=== PATIENT | female | born 1980 ===

== ENCOUNTER 2018-12-20 17:40 | Emergency (ER) | payer MEDICARE, MEDICAID ==
[2018-12-20 17:57] VITALS: BMI 30.4
[2018-12-20 17:59] VITALS: TEMP 98.8
[2018-12-20] MEDS ORDERED: Sodium Chloride 0.9% 1,000 ML IV STA (18:20)
[2018-12-20] MEDS ORDERED: DiphenhydrAMINE 50 mg/ml Inj IVP STA (18:20)
--- NOTE | 2018-12-20 18:41 | ED PDOC ---
Arrival/HPI - General Chief Complaint: Headache Time Seen by Provider: 12/20/18 17:40 Historian: Patient - History of Present Illness Narrative History of Present Illness (Text): 12/20/18 18:21 38 y/o female with PMH of migraines presents to the ED c/o headache x 2 weeks that worsened over the last 2 days. Headache is gradual in onset, throbbing, located to right jain and forehead, and radiates to right ear and down right side of face. Seen in [facility] ED yesterday and diagnosed with right otitis media, prescribed Augmentin, of which she has taken 2 tablets. Has tried alieve, ibuprofen, and tylenol with codeine for headache without relief. States the pain is unbearable, which prompted visit to ED. States that this does not feel like her previous headaches. Denies numbness, weakness, paresthesias, vision changes, dizziness, fevers, chills, nausea, vomiting, abdominal pain, sore throat, sinus congestion, eye pain, jaw claudication, or any other associated symptoms. Past Medical History - Infectious Disease Hx of Infectious Diseases: None - Cardiac Hx Cardiac Disorders: No - Pulmonary Hx Respiratory Disorders: No - Neurological Hx Neurological Disorder: No - HEENT Hx HEENT Disorder: No - Renal Hx Renal Disorder: No - Endocrine/Metabolic Hx Endocrine Disorders: No - Hematological/Oncological Hx Blood Disorders: No - Integumentary Hx Dermatological Disorder: No - Musculoskeletal/Rheumatological Hx Musculoskeletal Disorders: No - Gastrointestinal Hx Gastrointestinal Disorders: Yes Hx Gastritis: Yes - Genitourinary/Gynecological Hx Genitourinary Disorders: No - Psychiatric Hx Psychophysiologic Disorder: Yes Hx Depression: Yes Hx Substance Use: No Family/Social History Smoking Status: Never Smoked Hx Alcohol Use: No Hx Substance Use: No Allergies/Home Meds Allergies/Adverse Reactions: Allergies Sulfa (Sulfonamide Antibiotics) Allergy (Verified 12/20/18 17:57) RASH Home Medications: Home Meds Medication Instructions Recorded Confirmed Esomeprazole Magnesium [Nexium] 40 mg PO DAILY 12/20/18 12/20/18 Paroxetine HCl [Paxil] 40 mg PO DAILY 12/20/18 12/20/18 Review of Systems - Review of Systems Constitutional: Normal. absent: Fatigue, Fevers Eyes: Normal. absent: Vision Changes, Photophobia, Eye Pain ENT: Other (ear pain). absent: Hearing Changes, Sore Throat, Sinus Congestion Respiratory: Normal. absent: SOB, Cough Cardiovascular: Normal. absent: Chest Pain, Palpitations Gastrointestinal: Normal. absent: Abdominal Pain, Nausea, Vomiting Genitourinary Female: Normal. absent: Dysuria, Frequency, Vaginal Bleeding, Vaginal Discharge Musculoskeletal: Normal. absent: Back Pain, Neck Pain Skin: Normal. absent: Rash Neurological: Headache. absent: Dizziness Endocrine: Normal Hemo/Lymphatic: Normal Psychiatric: Normal Physical Exam Vital Signs Reviewed: Yes Vital Signs Temp Pulse Resp BP Pulse Ox 12/20/18 17:58 98.8 F 87 18 122/77 98 Temperature: Afebrile Blood Pressure: Normal Pulse: Regular Respiratory Rate: Normal Appearance: Positive for: Well-Appearing, Non-Toxic, Comfortable Pain Distress: None Mental Status: Positive for: Alert and Oriented X 3 - Systems Exam Head: Present: Atraumatic, Normocephalic Pupils: Present: PERRL Extroacular Muscles: Present: EOMI Conjunctiva: Present: Normal Ears: Present: Other (LEFT: Normal TM, Normal Canal RIGHT: Erythema and dullness to TM. No mastoid tenderness or bogginess bilaterally) Mouth: Present: Moist Mucous Membranes. No: Normal Teeth (poor dentition to teeth of mandible and maxilla on right side; no abscess or swelling; no tenderness ) Pharnyx: Present: Normal. No: ERYTHEMA, EXUDATE, TONSILS ENLARGED Nose (External): Present: Atraumatic Nose (Internal): Present: Normal Inspection Neck: Present: Normal Range of Motion. No: Meningeal Signs, Lymphadenopathy Respiratory/Chest: Present: Clear to Auscultation, Good Air Exchange. No: Respiratory Distress, Accessory Muscle Use Cardiovascular: Present: Regular Rate and Rhythm, Normal S1, S2, Peripheal Pulses Present Abdomen: Present: Normal Bowel Sounds. No: Tenderness, Distention, Peritoneal Signs, Rebound, Guarding Upper Extremity: Present: Normal Inspection, Normal ROM, NORMAL PULSES, Neurovascularly Intact, Capillary Refill < 2s. No: Cyanosis, Edema, Temperature Abnormalties Lower Extremity: Present: Normal ROM, Neurovascularly Intact Neurological: Present: GCS=15, CN II-XII Intact, Speech Normal, Motor Func Grossly Intact, Normal Sensory Function, Gait Normal Skin: Present: Warm, Dry, Normal Color. No: Rashes Psychiatric: Present: Alert, Oriented x 3, Normal Insight, Normal Concentration, Normal Affect, Normal Mood Medical Decision Making ED Course and Treatment: 12/20/18 19:33 Initial Plan: * CBC, CMP * Coags * Rapid Strep * Rapid Flu * CT Head * IVF * Benadryl * Tylenol 1999 Patient care endorsed to pending lab and imaging results, reassessment, and disposition. Pt made aware of change in care. Resting in stretcher with stable vital signs. Uncomfortable secondary to headache. - Lab Interpretations Lab Results: 12/20/18 19:33 Lab Results 12/20/18 19:33: PT 11.7, INR 1.05, APTT 33.5 12/20/18 19:33: WBC 5.8, RBC 4.08, Hgb 11.8 L, Hct 36.1, MCV 88.5, MCH 28.9, M CHC 32.7, RDW 14.4, Plt Count 272, MPV 11.1 H, Neut % (Auto) 60.1, Lymph % (Auto) 31.1, [place] % (Auto) 6.2 H, Eos % (Auto) 1.7, Baso % (Auto) 0.9, Lymph # (Auto) 1.8, [place] # (Auto) 0.4, Eos # (Auto) 0.1, Baso # (Auto) 0.05, Absolute Neuts (auto) 3.47 I have reviewed the lab results: Yes - RAD Interpretation Radiology Orders: 12/20/18 18:19 HEAD W/O CONTRAST [CT] Stat - Medication Orders Current Medication Orders: Diphenhydramine HCl (Benadryl) 25 mg IVP STAT STA Stop: 12/20/18 18:21 Sodium Chloride (Sodium Chloride 0.9%) 1,000 mls @ 999 mls/hr IV .Q1H1M STA Stop: 12/20/18 19:20 - Transfer of Care Patient signed out to Dr:: Jonathon Pending Labs:: CMP, Rapid Strep, Rapid Flu Pending Radiology Studies:: CT Head Other: Reassessment and Disposition Disposition/Present on Arrival - Present on Arrival History of DVT/PE: No History of Uncontrolled Diabetes: No Urinary Catheter: No History of Decub. Ulcer: No History Surgical Site Infection Following: None - Disposition Forms: [employer] (Spanish)
[2018-12-20 19:48] LABS: BASO # 0.05 K/mm3 (0.0-2.0); BASO % 0.9 % (0.0-3.0); EOS # 0.1 (0.0-0.7); EOS % 1.7 % (1.5-5.0); HEMOGLOBIN 11.8 g/dL (12.0-16.0); LYMPH # 1.8 (1.2-3.4); LYMPH % 31.1 % (22.0-35.0); MEAN CELL VOLUME 88.5 fl (80.0-105.0); MEAN CORPUSCULAR HEMOGLOBIN 28.9 pg (25.0-35.0); MEAN CORPUSCULAR HGB CONC 32.7 g/dl (31.0-37.0); MEAN PLATELET VOLUME 11.1 fl (7.0-11.0); MONO # 0.4 (0.1-0.6); MONO % 6.2 % (1.0-6.0); RBC 4.08 10^6/uL (3.5-6.1); RED CELL DISTRIBUTION WIDTH 14.4 % (11.5-14.5); WHITE BLOOD COUNT 5.8 10^3/uL (4.5-11.0)
[2018-12-20 19:53] LABS: INR 1.05; PARTIAL THROMBOPLASTIN TIME 33.5 Seconds (26.9-38.3); PROTHROMBIN TIME 11.7 SECONDS (9.4-12.5)
[2018-12-20 20:10] LABS: ALBUMIN 3.8 g/dL (3.0-4.8); ALT/SGPT 38 U/L (7-56); AST/SGOT 34 U/L (14-36); BLOOD UREA NITROGEN 11 mg/dL (7-21); CALCIUM 9.4 mg/dL (8.4-10.5); GFR NON-AFRICAN AMERICAN > 60
[2018-12-20 20:27] LABS: BARBITURATES, UR NEGATIVE (NEGATIVE); BENZODIAZEPINES, UR NEGATIVE (NEGATIVE); OPIATES, UR POSITIVE (NEGATIVE); PHENCYCLIDINE, UR NEGATIVE (NEGATIVE)
--- NOTE | 2018-12-20 22:27 | ED PDOC ---
Physical Exam Vital Signs Reviewed: Yes Vital Signs Temp Pulse Resp BP Pulse Ox 12/20/18 17:58 98.8 F 87 18 122/77 98 Temperature: Afebrile Blood Pressure: Normal Pulse: Regular Respiratory Rate: Normal Appearance: Positive for: Well-Appearing, Non-Toxic, Comfortable Pain Distress: None Mental Status: Positive for: Alert and Oriented X 3 Medical Decision Making ED Course and Treatment: 12/20/18 22:26 Case signed out to me by RANDY Wells pending CT results and reevaluation. 38-year-old female Who has been having a 4-day history of right-sided dental pain who was seen at [facility] and diagnosed with an ear infection was placed on Augmentin and discharged home. Patient states the headache spread from the right side of the jaw up to the forehead. Patient without fevers or chills. No trismus or drooling. labs reviewed; all labs within normal limits pt with right TM dullness and slight erythema; + poor dentition with dental fracture to right lower molar. CAT scan of the head:FINDINGS: BRAIN No acute intraparenchymal hemorrhage. No mass lesion. No CT evidence for acute territorial infarct. No midline shift or extra-axial collections. VENTRICLES: No hydrocephalus. ORBITS: The orbits are unremarkable. SINUSES AND MASTOIDS: The paranasal sinuses and mastoid air cells are clear. BONES: No fracture. SOFT TISSUES: 1.3 x 0.8 cm right anterior frontal subcutaneous sebaceous cyst is seen, may be excised. IMPRESSION: No acute intracranial abnormality. 1.3 x 0.8 cm right anterior frontal subcutaneous sebaceous cyst is seen, may be excised. Electronically signed on Dec 20, 2018 10:09:11 PM EDT by: Joshua Massey M.D., JONNIE Certified By [facility] Fellowship Trained MRI and CT Specialist Patient reassessment: Patient is feeling better after medications. Vital signs are stable. All results discussed in depth with the patient. Patient was advised to continue Motrin every 6 hours as needed for pain and continue the Augmentin twice daily as prescribed by [facility]. Patient was advised to follow-up with the ENT specialist as well as a dentist within the next 2 days. Patient was advised to me to return if symptoms worsen persist or if new concerning symptoms develop Patient verbalizes understanding of discharge instructions and need for immediate followup. All aspects of this case were discussed the attending of record. Impression: Toothache, headache, earache Motrin every 6 hours as needed for pain Continue Augmentin twice daily as prescribed percocet; 1 tablet every 6 hours as needed for moderate to severe pain; may cause drowsiness. Follow-up with the ENT specialist within the next 2 days Follow-up with a dentist within the next 2 days Increase fluids Return immediately if symptoms worsen persist or if new concerning symptoms develop 12/20/18 22:40 Reassessment Condition: Re-examined, Improved - Lab Interpretations Lab Results: PT 11.7 SECONDS (9.4-12.5) 12/20/18 19:33 INR 1.05 12/20/18 19:33 APTT 33.5 Seconds (26.9-38.3) 12/20/18 19:33 Total Bilirubin 0.3 mg/dL (0.2-1.3) 12/20/18 19:33 AST 34 U/L (14-36) 12/20/18 19:33 ALT 38 U/L (7-56) 12/20/18 19:33 Alkaline Phosphatase 100 U/L (38-126) 12/20/18 19:33 Total Protein 7.6 g/dL (5.8-8.3) 12/20/18 19:33 Albumin 3.8 g/dL (3.0-4.8) 12/20/18 19:33 Globulin 3.7 gm/dL 12/20/18 19:33 Albumin/Globulin Ratio 1.0 (1.1-1.8) L 12/20/18 19:33 - RAD Interpretation Radiology Orders: 12/20/18 18:19 HEAD W/O CONTRAST [CT] Stat - Medication Orders Current Medication Orders: Discontinued Medications Acetaminophen (Tylenol 325mg Tab) 975 mg PO STAT STA Stop: 12/20/18 18:22 Last Admin: 12/20/18 18:52 Dose: 975 mg MAR Pain/Vitals Document 12/20/18 18:52 EQ (Rec: 12/20/18 18:52 EQ [id number]) Pain Reassessment Is This A Pain ReAssessment? No Sleep Is patient sleeping during reassessment? No Presence of Pain Presence of Pain Yes Diphenhydramine HCl (Benadryl) 25 mg IVP STAT STA Stop: 12/20/18 18:21 Last Admin: 12/20/18 18:52 Dose: 25 mg IVP Administration Document 12/20/18 18:52 EQ (Rec: 12/20/18 18:52 EQ [id number]) Charges for Administration # of IVP Administrations 1 Sodium Chloride (Sodium Chloride 0.9%) 1,000 mls @ 999 mls/hr IV .Q1H1M STA Stop: 12/20/18 19:20 Last Admin: 12/20/18 18:52 Dose: 999 mls/hr eMAR Start Stop Document 12/20/18 18:52 EQ (Rec: 12/20/18 18:52 EQ [id number]) Intravenous Solution Start Date 12/20/18 Start Time 18:52 Disposition/Present on Arrival - Present on Arrival Any Indicators Present on Arrival: No History of DVT/PE: No History of Uncontrolled Diabetes: No Urinary Catheter: No History of Decub. Ulcer: No History Surgical Site Infection Following: None - Disposition Have Diagnosis and Disposition been Completed?: Yes Diagnosis: Toothache, Headache, Earache Disposition: HOME/ ROUTINE Disposition Time: 22:38 Patient Plan: Discharge Condition: GOOD Discharge Instructions (ExitCare): Headache, Adult (DC), Dental Pain Additional Instructions: Motrin every 6 hours as needed for pain Continue Augmentin twice daily as prescribed percocet; 1 tablet every 6 hours as needed for moderate to severe pain; may cause drowsiness. Follow-up with the ENT specialist within the next 2 days Follow-up with a dentist within the next 2 days Increase fluids Return immediately if symptoms worsen persist or if new concerning symptoms develop Prescriptions: Ibuprofen [Motrin] 600 mg PO Q6H PRN #20 tab PRN Reason: pain/fever reduction oxyCODONE/Acetaminophen [Percocet 5/325 mg Tab] 1 tab PO Q6H PRN #6 tab PRN Reason: moderate to severe pain Referrals: yTrone De DO [Staff Provider] - Follow up with primary Stefan Ashton MD [Staff Provider] - Follow up with primary Bhanu Mckeon DMD [Non-Staff] - Follow up with primary Itz Guevara DMD [Staff Provider] - Follow up with primary Forms: [employer] (Yakut), WORK NOTE
[2018-12-20 22:57] VITALS: BP 127/89; PULSE 74; RESP 16; O2SAT 100
--- NOTE | 2018-12-21 07:24 | CT ---
Date of service: 12/20/2018 PROCEDURE: CT HEAD WITHOUT CONTRAST. HISTORY: headache COMPARISON: None available. TECHNIQUE: Axial computed tomography images were obtained through the head/brain without intravenous contrast. Radiation dose: Total exam DLP = 919.78 mGy-cm. This CT exam was performed using one or more of the following dose reduction techniques: Automated exposure control, adjustment of the mA and/or kV according to patient size, and/or use of iterative reconstruction technique. FINDINGS: HEMORRHAGE: No intracranial hemorrhage. BRAIN: No mass effect or edema. No atrophy or chronic microvascular ischemic changes. VENTRICLES: Unremarkable. No hydrocephalus. CALVARIUM: Unremarkable. 1.3 cm sebaceous cyst anterior frontal PARANASAL SINUSES: Unremarkable as visualized. No significant inflammatory changes. MASTOID AIR CELLS: Unremarkable as visualized. No inflammatory changes. OTHER FINDINGS: The report concurs with the preliminary [facility] report IMPRESSION: No acute intracranial findings
== END 2018-12-20 22:42 | disposition home or self-care (01) ==
LOC: ED 17:40 → MERGE 17:40 → ED 22:42
DX: R51 Headache (principal); K08.89 Other specified disorders of teeth and supporting structures; H92.01 Otalgia, right ear
CPT/HCPCS: 70450; 80053; 81025; 85025; 85610; 85730; 87804; 96374; 99285; G0480; J1200; J7030